=== PATIENT | male | born 1975 | race Caucasian/White ===

== ENCOUNTER 2024-05-28 14:36 | Inpatient (IN) | payer OTHER ==
[~2024-05-28] VITALS: Ht 167.6 cm; Wt 99.8 kg
[2024-05-28] MEDS ORDERED: ONDANSETRON 4 MG/2 ML VIAL ONE ×2 (14:53→15:50)
[2024-05-28 15:03] LABS: BASOPHILS # (AUTO) 0.1 K/UL (0.0-0.2); BASOPHILS % (AUTO) 0.3 % (0.0-2.0); EOSINOPHILS % (AUTO) 0.1 % (0.0-7.0); HEMATOCRIT 52.5 % (36.7-47.1); HEMOGLOBIN 17.7 g/dL (12.5-16.3); LYMPHOCYTES # (AUTO) 1.1 K/uL (0.8-4.8); MEAN CORPUSCULAR HEMOGLOBIN 30.2 uug (23.8-33.4); MEAN CORPUSCULAR HGB CONC 34 g/dL (32.5-36.3); MEAN CORPUSCULAR VOLUME 89.6 fL (73.0-96.2); MONOCYTES # (AUTO) 0.5 K/uL (0.1-1.30); MONOCYTES % (AUTO) 2.9 % (0.0-11.0); NEUTROPHILS # (AUTO) 16.2 K/uL (1.8-8.9); NEUTROPHILS % (AUTO) 90.7 % (38.5-71.5); PLATELET COUNT (AUTO) 273 K/uL (152-348); RED BLOOD CELL COUNT(AUTO) 5.86 MIL/uL (4.06-5.63); WHITE BLOOD COUNT (AUTO) 17.9 K/uL (3.6-10.2)
[2024-05-28] MEDS: ONDANSETRON 4 MG/2 ML VIAL IV ONE ×2 (15:04→15:57)
[2024-05-28] MEDS: IV NORMAL SALINE 1000 ML BAG IV ONE ×2 (15:04→15:58)
[2024-05-28 15:10] LABS: SITE, VBG VBG - N/A; VBG AaDO2 52.8 mmHg; VBG BASE EXCESS -18.7 mmol/L (-3-3); VBG HCO3 8.9 mmol/L (22-27); VBG MetHb 0.2 % (0.0-0.5); VBG O2HB 66.6 %; VBG PCO2 27.8 mmHg (41.0-54.0); VBG PO2 < 40.5 mmHg (25.0-35.0); VBG TOTAL HEMOGLOBIN 18.2 G/dL (12.0-16.0)
[2024-05-28 15:11] LABS: CALCIUM 9.8 mg/dL (8.5-10.1); CREATININE 1.5 mg/dL (0.6-1.3); POTASSIUM 5.5 mmol/L (3.5-5.1)
[2024-05-28 15:23] LABS: ETHANOL < 3 MG/DL (0-10)
[2024-05-28 15:40] LABS: BILIRUBIN,TOTAL 0.7 mg/dL (0.2-1.0)
[2024-05-28 15:41] LABS: ALBUMIN 4.5 g/dL (3.4-5.0); BILIRUBIN,DIRECT 0.1 mg/dL (0.0-0.2); TOTAL PROTEIN, SERUM 7.7 g/dL (6.4-8.2)
[2024-05-28 15:43] LABS: DIFFERENTIAL COMMENT 1
[2024-05-28] MEDS ORDERED: KETOROLAC TROMETHAMINE 15 MG INJ ONE (15:51)
[2024-05-28] MEDS ORDERED: MORPHINE SULFATE 4 MG/1 ML DISP.SYRIN ONE (15:51)
[2024-05-28] MEDS: MORPHINE SULFATE 4 MG/1 ML DISP.SYRIN IV ONE (15:57)
[2024-05-28] MEDS: KETOROLAC TROMETHAMINE 15 MG INJ IVP ONE (15:58)
[2024-05-28 16:03] LABS: ACETONE, SERUM MODERATE (NEGATIVE)
[2024-05-28] MEDS ORDERED: AMLO-212 PO (16:10)
[2024-05-28] MEDS ORDERED: FLUV50TA3 PO (16:10)
[2024-05-28] MEDS ORDERED: LOSA50TA39 PO (16:10)
[2024-05-28] MEDS ORDERED: INSU100I47 SQ (16:10)
[2024-05-28] MEDS ORDERED: SIMV-46 PO (16:10)
[2024-05-28] MEDS ORDERED: CARV6.252 PO (16:10)
[2024-05-28] MEDS ORDERED: PRAM0.129 (16:10)
[2024-05-28] MEDS ORDERED: ONDA4TAB11 PO (16:10)
[2024-05-28] MEDS ORDERED: REMEDY ESSENTIAL ZINC PASTE 113 GM TP PRN (17:00)
[2024-05-28] MEDS ORDERED: ACETAMINOPHEN 325 MG TABLET PO PRN (17:00)
[2024-05-28 17:43] LABS: CALCIUM 8.6 mg/dL (8.5-10.1); CREATININE 1.4 mg/dL (0.6-1.3); MAGNESIUM 1.8 mg/dL (1.8-2.4); PHOSPHOROUS 5.3 mg/dL (2.5-4.9)
[2024-05-28 17:53] LABS: POTASSIUM 6.2 mmol/L (3.5-5.1)
[2024-05-28] MEDS: INSULIN REGULAR, HUMAN 100 UNIT in IV NORMAL SALINE 99 ML IV PRN (18:10)
[2024-05-28] MEDS: IV D5/ 0.9% NACL 1,000 ML IV PRN (18:27)
[2024-05-28 19:00] VITALS: BP 112/67
[2024-05-28] MEDS: BLOOD SUGAR DIAGNOSTIC 1 EACH STRIP VI SCH (19:20)
[2024-05-28 20:00] VITALS: TEMP 98; O2SAT 99
[2024-05-28] MEDS: ENOXAPARIN SODIUM 40 MG/0.4 ML DISP.SYRIN SQ SCH (20:13)
[2024-05-28 20:25] LABS: CREATININE 1.6 mg/dL (0.6-1.3); MAGNESIUM 1.9 mg/dL (1.8-2.4); PHOSPHOROUS 5.2 mg/dL (2.5-4.9)
[2024-05-28 20:38] LABS: POTASSIUM 6.4 mmol/L (3.5-5.1)
[2024-05-28 21:00] VITALS: BP 107/59; O2SAT 97
[2024-05-28] MEDS: IV 10% DEXTROSE 1,000 ML IV PRN (21:31)
[2024-05-28 22:00] VITALS: BP 136/72; O2SAT 100
[2024-05-28 22:28] LABS: CALCIUM 7.9 mg/dL (8.5-10.1); CREATININE 1.7 mg/dL (0.6-1.3); POTASSIUM 5.2 mmol/L (3.5-5.1)
[2024-05-28 22:32] LABS: MAGNESIUM 1.9 mg/dL (1.8-2.4); PHOSPHOROUS 4.3 mg/dL (2.5-4.9)
[2024-05-28 22:57] LABS: ABG BASE EXCESS -17.9 mmol/L (-2.0-2.0); ABG HCO3 7.5 mmol/L (22.0-26.0); ABG PCO2 18.8 mmHg (35.0-48.0); ABG PH 7.216 (7.340-7.440); ABG PO2 89.5 mmHg (75.0-100.0); ABG SITE LEFT RADIAL; ABG TOTAL HEMOGLOBIN 15.6 G/dL (14.0-18.0); AaDO2 95.4 mmHg; COHb 0.2 % (0.0-3.9); MetHb 0.5 % (0.0-1.5); O2Hb 96.3 % (94.0-97.0)
[2024-05-28 23:20] VITALS: BP 134/69
[2024-05-28] MEDS: FAMOTIDINE 20 MG TABLET PO ONE (23:29)
[2024-05-28] MEDS: ONDANSETRON 4 MG/2 ML VIAL IV PRN (23:36)
[2024-05-28 23:57] LABS: *BLOOD, URINE NEGATIVE (NEGATIVE); *CLARITY,URINE CLEAR (CLEAR); *COLOR,URINE YELLOW (YELLOW); *KETONES,URINE 4+ (NEGATIVE); *PROTEIN,URINE 1+ (NEGATIVE); *UROBILINOGEN,URINE 0.2 E.U./dl (NORMAL); LEUKOCYTE ESTERASE ,URINE NEGATIVE (NEGATIVE); NITRITE, URINE NEGATIVE (NEGATIVE)
[2024-05-28 23:58] LABS: UGLUCOSE 2+ (NEGATIVE)
[2024-05-29] VITALS (31 sets, daily range): BP systolic 102–156; BP diastolic 52–108; TEMP 97.1–98.4; O2SAT 93–100
[2024-05-29] LABS: *BILIRUBIN,URIN 1+ (NEGATIVE)
[2024-05-29 00:08] LABS: BACTERIA,URINE FEW /HPF (NONE SEEN); RBC,URINE NONE SEEN /HPF (0-3); SQUAMOUS EPITHELIAL CELL,UR FEW /HPF (NONE SEEN); WBC,URINE 0-3 /HPF (0-3)
[2024-05-29 00:11] LABS: *AMPHETAMINE, URINE NEGATIVE (NEGATIVE); *BARBITURATE, URINE NEGATIVE (NEGATIVE); *BENZODIAZEPINE, URINE NEGATIVE (NEGATIVE); *CANNABINOID, URINE NEGATIVE (NEGATIVE); *COCCAINE, URINE NEGATIVE (NEGATIVE); *OPIATE, URINE POSITIVE (NEGATIVE); *PHENCYCLIDINE SCREEN,URINE NEGATIVE (NEGATIVE)
[2024-05-29 00:12] LABS: FENTANYL, URINE NEGATIVE (NEGATIVE)
[2024-05-29 02:25] LABS: CALCIUM 8.2 mg/dL (8.5-10.1); CREATININE 1.6 mg/dL (0.6-1.3)
[2024-05-29 02:28] LABS: MAGNESIUM 1.9 mg/dL (1.8-2.4); PHOSPHOROUS 2.6 mg/dL (2.5-4.9)
[2024-05-29] MEDS: MORPHINE SULFATE 2 MG/1 ML DISP.SYRIN IVP PRN (04:56)
[2024-05-29 05:26] LABS: CALCIUM 8.2 mg/dL (8.5-10.1); CREATININE 1.5 mg/dL (0.6-1.3); MAGNESIUM 1.9 mg/dL (1.8-2.4); PHOSPHOROUS 1.8 mg/dL (2.5-4.9); POTASSIUM 4.5 mmol/L (3.5-5.1)
[2024-05-29] MEDS: MAGNESIUM SULFATE/D5W 100 ML IV SCH (05:33)
[2024-05-29 08:10] LABS: CALCIUM 8.1 mg/dL (8.5-10.1); CREATININE 1.3 mg/dL (0.6-1.3); POTASSIUM 4.1 mmol/L (3.5-5.1)
[2024-05-29 08:14] LABS: MAGNESIUM 2.7 mg/dL (1.8-2.4); PHOSPHOROUS 1.7 mg/dL (2.5-4.9)
[2024-05-29] MEDS: INSULIN REGULAR, HUMAN 100 UNIT in IV NORMAL SALINE 99 ML IV PRN (08:33)
[2024-05-29] MEDS ORDERED: FAMOTIDINE 20 MG TABLET PO SCH (09:00)
[2024-05-29] MEDS: PANTOPRAZOLE SODIUM 40 MG VIAL IV SCH (09:20)
[2024-05-29] MEDS ORDERED: INSU100I24 SQ (10:29)
[2024-05-29] MEDS ORDERED: DEXTROSE 50% 50 ML DISP.SYRIN IV PRN (10:30)
[2024-05-29] MEDS: INSULIN LISPRO 300 UNIT/3 ML VIAL SQ SCH (11:30)
[2024-05-29] MEDS: BLOOD SUGAR DIAGNOSTIC 1 EACH STRIP VI SCH (12:08)
[2024-05-29] MEDS: NEUTRA PHOS PACKET PO ONE (12:27)
[2024-05-29] MEDS: METOCLOPRAMIDE HCL 10 MG/2 ML VIAL IV PRN (12:38)
[2024-05-29] MEDS: IV LACTATED RINGERS SOLUTION 1,000 ML IV PRN (12:41)
[2024-05-29] MEDS: INSULIN REGULAR, HUMAN 300 UNIT/3 ML VIAL SQ PRN (16:24)
[2024-05-29] MEDS: INSULIN GLARGINE,HUM 300 UNITS/3 ML CARTRIDGE SQ SCH (20:20)
[2024-05-30 04:00] VITALS: BP 124/64; TEMP 98.3; O2SAT 94
[2024-05-30 07:02] LABS: BASOPHILS % (AUTO) 0.1 % (0.0-2.0); EOSINOPHILS # (AUTO) 0.1 K/uL (0.0-0.7); HEMATOCRIT 35.1 % (36.7-47.1); HEMOGLOBIN 12.3 g/dL (12.5-16.3); LYMPHOCYTES # (AUTO) 1.5 K/uL (0.8-4.8); LYMPHOCYTES % (AUTO) 22.5 % (20.5-51.5); MEAN CORPUSCULAR HEMOGLOBIN 30.5 uug (23.8-33.4); MEAN CORPUSCULAR HGB CONC 35 g/dL (32.5-36.3); MONOCYTES # (AUTO) 0.6 K/uL (0.1-1.30); MONOCYTES % (AUTO) 9.3 % (0.0-11.0); NEUTROPHILS # (AUTO) 4.4 K/uL (1.8-8.9); NEUTROPHILS % (AUTO) 67.1 % (38.5-71.5); PLATELET COUNT (AUTO) 162 K/uL (152-348); RED BLOOD CELL COUNT(AUTO) 4.03 MIL/uL (4.06-5.63); RED CELL DISTRIBUTION WIDTH 12.6 % (12.1-16.2); WHITE BLOOD COUNT (AUTO) 6.5 K/uL (3.6-10.2)
[2024-05-30 07:11] LABS: DIFFERENTIAL COMMENT 1
[2024-05-30 07:15] LABS: CALCIUM 8.5 mg/dL (8.5-10.1); CREATININE 1.1 mg/dL (0.6-1.3); MAGNESIUM 2.1 mg/dL (1.8-2.4); PHOSPHOROUS 2.4 mg/dL (2.5-4.9)
[2024-05-30] MEDS: NEUTRA PHOS PACKET PO ONE (10:48)
[2024-05-30] MEDS ORDERED: UBID200C37 PO (11:15)
[2024-05-30] MEDS ORDERED: ONDANSETRON ODT 4 MG TAB.RAPDIS SL PRN (11:15)
[2024-05-30] MEDS ORDERED: SIMV-49 PO (11:15)
[2024-05-30] MEDS ORDERED: CARV6.252 PO (11:15)
[2024-05-30] MEDS ORDERED: INSU100I24 SQ (11:15)
[2024-05-30] MEDS ORDERED: INSU100I47 SQ (11:15)
[2024-05-30] MEDS ORDERED: LOSA50TA39 PO (11:15)
[2024-05-30] MEDS ORDERED: AMLO-212 PO (11:15)
[2024-05-30] MEDS ORDERED: ONDA4TAB11 PO (11:15)
[2024-05-30 12:00] VITALS: BP 154/93; TEMP 98; O2SAT 97
[2024-05-30] MEDS ORDERED: INSULIN ASPART 300 UNIT/3 ML CARTRIDGE SQ SCH (12:00)
[2024-05-30] MEDS ORDERED: LOSARTAN POTASSIUM 50 MG TABLET PO SCH (17:00)
[2024-05-30] MEDS ORDERED: SIMVASTATIN 20 MG TABLET PO SCH (17:00)
[2024-05-30] MEDS ORDERED: CARVEDILOL 6.25 MG TABLET PO SCH (17:00)
[2024-05-31] MEDS ORDERED: PANTOPRAZOLE SODIUM 40 MG TABLET.DR PO SCH (07:00)
[2024-05-31] MEDS ORDERED: AMLODIPINE 5 MG TABLET PO SCH (09:00)
== END 2024-05-30 13:30 | disposition home or self-care (01) | DRG 420 ==
LOC: ER 14:36 → CCU 17:55 → TELE3 05-29 18:26 → MEDSURG3 05-29 18:38
PROVIDERS: ADMIT Nurse Practitioner Acute Care; ATTEND Nurse Practitioner Acute Care
DX: E10.10 Type 1 diabetes mellitus with ketoacidosis without coma (principal); E83.39 Other disorders of phosphorus metabolism; D72.829 Elevated white blood cell count, unspecified; E86.0 Dehydration; E87.5 Hyperkalemia; I10 Essential (primary) hypertension; Z79.4 Long term (current) use of insulin; Z79.899 Other long term (current) drug therapy; N28.9 Disorder of kidney and ureter, unspecified
CPT/HCPCS: 36415; 36600; 82803; 83690; 83735; 84100; 84443; 85025; A4606; A4663; G0378; G0480; J1650; J1815; J1885; J2270; J2405; J2470; J2765; J3475; J7042; J7120